=== PATIENT | male | born 1955 | race Caucasian/White ===

== ENCOUNTER 2019-01-07 06:15 | Day surgery (SDC) | payer OTHER ==
[~2019-01-07] VITALS: Ht 182.9 cm; Wt 67.1 kg
[~2019-01-07 06:15] MED LIST: FLOMAX0.4 MG PO; GLUCOPHAGE XR750 MG PO; PROSCAR5 MG PO
--- NOTE | 2019-01-07 08:05 | NUR ---
01/07/19 08 Erika Cintron 0759 PATIENT ARRIVES TO PACU SLEEPING. RESPONDS TO VERBAL STIMULI, THEN BACK TO SLEEP. RESP EVEN AND UNLABORED, NC AT 3 LITERS TURNED OFF ON ARRIVAL TO PACU, ROOM AIR SATS GREATER THAN 95%. 08 LAB CALLED FOR BLOOD DRAW PER DR KENDALL REQUEST.
--- NOTE | 2019-01-08 07:58 | OR ---
[facility] [address], [place] [address] Signed DATE OF OPERATION: 01/07/2019 SURGEON: Abel Kendall MD PREOPERATIVE DIAGNOSES: 1. Screening. 2. Internal hemorrhoids. POSTOPERATIVE DIAGNOSES: 1. Unspecified colonic mass at 20 cm (tattoo). 2. Moderate internal and external hemorrhoids. PROCEDURES: Colonoscopy with cold biopsies and injection of tattoo at 20 cm. ESTIMATED BLOOD LOSS: None. INDICATIONS: Karishma is a 63-year-old gentleman, who came in August 2008 for screening colonoscopy. He had internal hemorrhoids at that time. There is no family history of colon cancer or polyps. He has no lower GI complaints. He presents now for a followup screening colonoscopy. I gave Karishma a pamphlet in the office on colonoscopy and we looked at that together along with the risks including, but not limited to gas bloating, crampy abdominal pain, bleeding, perforation, requiring surgery, and missed diagnosis. He also understands the need for IV conscious sedation. He had expressed understanding and wished to proceed. PROCEDURE NOTE: Jonathan was taken into our endoscopy suite and placed in the left lateral decubitus position. He was given IV sedation with 7 mg of Versed and 100 mcg of fentanyl. A digital rectal exam was performed. He does have to moderate external hemorrhoids. He has good sphincter tone. Prostate glands moderately indurated, but not particularly enlarged. No dominant nodules. The adult colonoscope was introduced and advanced all around into the cecum under direct visualization of camera without difficulty. His prep was good. The scope was slowly withdrawn. He had no pathology until we reached 20 cm. In his distal sigmoid colon then he has a colonic mass occupying about 40% of the circumference of the lumen. It is not particularly long, maybe just 2 or 3 cm. It is obviously quite concerning. We went ahead and took several cold biopsies of this mass and then we placed a tattoo just opposite the mass to justin its location. The scope was Electronically Signed By: ABEL KENDALL MD 01/08/19 0758 PATIENT NAME: KARISHMA PARADA OPERATIVE REPORT DATE OF : 55 REPORT #: [id number] PHYSICIAN: ABEL KENDALL MD PCP: JANIYA SILVA REPORT IS CONFIDENTIAL AND NOT TO BE RELEASED WITHOUT AUTHORIZATION [facility] [address] [place] [id number] Signed withdrawn further and it looks like he has a fairly short rectum, maybe only 10 or 12 cm in length. We had just enough room then to retroflex the scope and he does have moderate internal hemorrhoids as well. After this, the gas was suctioned out. The colonoscope removed. Karishma tolerated the procedure quite well. RECOMMENDATIONS: We will draw a CEA level in our recovery room. I will have Karishma back in the office in a week or so for followup. Abel Kendall MD ALB/MODL /[id number] cc: RACHEL Desir MD Copies: JANIYA SILVA ANDREW L MD ~ Electronically Signed By: ABEL KENDALL MD 01/08/19 0758 PATIENT NAME: KARISHMA PARADA OPERATIVE REPORT DATE OF : 55 REPORT #: [id number] PHYSICIAN: ABEL KENDALL MD PCP: JANIYA SILVA REPORT IS CONFIDENTIAL AND NOT TO BE RELEASED WITHOUT AUTHORIZATION
== END 2019-01-07 09:10 | disposition home or self-care (01) ==
LOC: DS 06:15 → OPS 06:15 → DS 06:45 → OPS 06:45
PROVIDERS: Colon & Rectal Surgery
PROC: 0DBN8ZX Excision of Sigmoid Colon, Via Natural or Artificial Opening Endoscopic, Diagnostic (ICD-10-PCS; 2019-01-07)
PROC: 3E0H8GC Introduction of Other Therapeutic Substance into Lower GI, Via Natural or Artificial Opening Endoscopic (ICD-10-PCS; principal; 2019-01-07 06:45)
DX: Z12.11 Encounter for screening for malignant neoplasm of colon (principal); D12.5 Benign neoplasm of sigmoid colon; K64.8 Other hemorrhoids; K64.4 Residual hemorrhoidal skin tags; E11.9 Type 2 diabetes mellitus without complications; F41.9 Anxiety disorder, unspecified; Z79.899 Other long term (current) drug therapy; Z79.84 Long term (current) use of oral hypoglycemic drugs
CPT/HCPCS: 36415; 82378; 88305; 88342; 99153; G0500; J2250; J3010; J7120

== ENCOUNTER 2019-01-22 13:16 | Inpatient (IN) | payer OTHER ==
[~2019-01-22] VITALS: Ht 182.9 cm; Wt 58.1 kg
--- NOTE | 2019-01-29 10:09 | NUR ---
REPORTS DID BOWEL PREP.
--- NOTE | 2019-01-29 13:25 | NUR ---
01/29/19 1325 Elizabeth Castro 1251 PT ARRIVED IN PACU WITH ORAL AIRWAY IN PLACE ON A LIDOCAINE DRIP. VERBAL ORDERS FROM ANESTHESIA TO DC DRIP WHEN FINISHED. RN HOLDING AIRWAY OPEN WITH CHIN LIFT. 1305 LIDOCAINE DRIP FINSISHED AND REMOVED. [address] AWARE. 1310 PT RESPONSIVE. ORAL AIRWAY REMOVED. 1315 OXYGEN DECREASED TO 6L VIA MASK WITH SATS 100%. PT REPOSITIONED SELF TO RIGHT SIDE. 1325 PT RESTING. REU.
--- NOTE | 2019-01-29 14:27 | NUR ---
PT RECEIVED FROM PACU. PT RESTING WITH EYES CLOSED, AROUSABLE TO VOICE, ANSWERING QUESTIONS AND FOLLOWING COMMANDS. PT ON ROOM AIR, LUNG SOUNDS CLEAR, O2 SATS 96%. PT RATING PAIN 3-4/10 TO LOWER ABD, GIVEN 0.3 MG IV DILAUDID. PT DENIES NAUSEA, BOWEL TONES HYPOACTIVE. PT WITH MIDLINE INCISION, GAUZE AND TAPE, CDI, ICE PACK IN PLACE. PT WITH SCDS, CMS INTACT, WITHOUT EDEMA. PT PROVIDED WWATER, DISCUSSED FLUID RESTRICTION WIHT PT. PT DENIES OTHER NEEDS AT THIS TIME.
--- NOTE | 2019-01-29 15:03 | NUR ---
PT RESTING IN BED. PT RATING PAIN 2-3/10. PT ON ROOM AIR. PT DENIES NAUSEA, TOLERATING WATER WELL. MIDLINE INCISION, CDI. VSS. PT DENIES OTHER NEEDS AT THIS TIME.
--- NOTE | 2019-01-29 16:06 | NUR ---
PT RESTING IN BED. PT RATING PAIN 2/10. MIDLINE INCISION CDI. BOWEL TONES HYPOACTIVE. PT ON ROOM AIR, LUNG SOUNDS CLEAR. PT PROVIDED WITH JELLO, TOELRATED WATER WITHOUT NAUSEA. CMS INTACT, SCDS IN PLACE. PT DENIES OTHER NEEDS AT THIS TIME.
--- NOTE | 2019-01-29 18:33 | NUR ---
PT RECEIVED FROM PACU AT 1400. PT ON ROOM AIR, LUNG SOUNDS CLEAR. PT ALERT/ORIENTED, FLAT AFFECT. MIDLINE INCISION WITH GAUZE AND TAPE, CDI, ICE PACK IN PLACE. PT WITH GONZALEZ CATH, QS. D5LR AT 100 ML/HR. PT TOLERATING CLEAR LIQUID DIET WITH FLUID RESTRICTION. PT STOOD AT EDGE OF BED AND MARCHED IN PLACE, DID NOT FEEL READY TO WALK IN JOEL. SCDS IN PLACE.
--- NOTE | 2019-01-29 19:37 | NUR ---
cpp[ with assessment, midline dressing cdi. no c/o pain. f/c patent
--- NOTE | 2019-01-30 01:07 | NUR ---
RESTING, EYES CLOSED, AWAKES EASILY, NO FURTHER C/O PAIN. IVF INFUSING, F/C PATENT. SCDS ON.
--- NOTE | 2019-01-30 06:05 | NUR ---
CURRENTLY IN BED RESTING, ON ROOM AIR. MIDLINE ABD DRESSING CDI, [place], DENIES PASSING GAS AT THIS TIME. WAS MEDICATED X1 PER ABD PAIN WITH GOOD PAIN RELIEF PATENT DRAINING LIGHT JARED COLORED URINE. L ARM AND LE WEAKNESS [place], IVF INFUSING W/O PROBLEMS, TOLERATING SIPS OF FLUIDS PER 1000CC/24H FLUID RESTRICTIONS DIET. CALL LIGHT AT BEDSIDE
--- NOTE | 2019-01-30 07:10 | NUR ---
REPORT RECEIVED FROM MELANI MURO. PT RESTING IN BED AND REPORTS 2/10 PAIN THAT IS TOLERABLE. DRESSING C/D/I. PT REQUESTS JELLO FOR BREAKFAST, ORDER PLACED. PT DENIES ADDITIONAL REQUESTS OR COMPLAINTS AT THIS TIME. CALL LIGHT WITHIN REACH.
--- NOTE | 2019-01-30 07:13 | OR ---
[facility] [address] [place], [place] [address] Signed DATE OF OPERATION: 01/29/2019 SURGEON: Abel Kendall MD PREOPERATIVE DIAGNOSIS: Unspecified colonic mass at 20 cm (tattoo). POSTOPERATIVE DIAGNOSIS: Unspecified ulcerated colonic mass at 20 cm (tattoo). PROCEDURE: Low anterior resection with Mo side-to-end colorectal anastomosis, hand-sewn in 2 layers. INPUT AND OUTPUT: In was 1450 mL of crystalloid. Out was 20 mL of blood and 150 mL of urine over 2 hours. INDICATIONS: Karishma is a 63-year-old gentleman, who had presented for his initial screening colonoscopy in 2007. He had internal hemorrhoids at that time. No family history of colon cancer or polyps. No lower GI complaints. He would return for followup colonoscopy. Again, he has moderate internal and external hemorrhoids. We found a semilunar colonic mass at 20 cm. Visually occupied nearly one-half the circumference of the colon. It was very concerning from the visual standpoint. Five biopsies came back with adenomatous tissue. It was fairly firm. I have reviewed this with Karishma and his . I felt it was a little bit large to remove it safely with endoscope. The risk of perforation I felt was pretty high. We decided to go ahead and resect that area of colon for definitive treatment and diagnosis. We hope this is a large ulcerated adenomatous lesion rather than a cancer. We did draw a preoperative CEA level and it came back just normal at just over one. We withheld the CT scan of the chest, abdomen, and pelvis at this time. I had given Karishma a booklet in the office on colorectal polyps and cancer. We looked at the sigmoid colon along with the section on colon resections. I explained to Karishma, we would sew his colon back to the top of the rectum. We did review the expected intraop and postop course. He understands there is risk to surgery including, but not limited to bleeding, infection, scarring, change in contour of the skin as well as damage to bowel, damage to the ureters, anastomotic leak, incisional hernias, and other unforeseen comorbidities. He had expressed understanding and wished to proceed. PROCEDURE NOTE: Electronically Signed By: ABEL KENDALL MD 01/30/19 0713 PATIENT NAME: KARISHMA PARADA OPERATIVE REPORT DATE OF : 55 REPORT #: [id number] PHYSICIAN: ABEL KENDALL MD PCP: BARBARA SILVA REPORT IS CONFIDENTIAL AND NOT TO BE RELEASED WITHOUT AUTHORIZATION [facility] [address] [place] [id number] Signed I have met with Karishma and his in our preop area. After answering the questions, Karishma was taken in the operating room and placed in the supine position under general endotracheal tube anesthesia. He was given preoperative antibiotics along with subcutaneous heparin. SCDs were utilized. A Camacho catheter was inserted with return of clear yellow urine without difficulty. He was then prepped and draped in the usual sterile fashion. We utilized a standard periumbilical midline incision and carried that in the abdomen with the help of the cautery without difficulty. Karishma is quite thin and we could easily see the tattoo in the distal sigmoid colon and I could palpate the lesion inside the colon next to the tattoo. We could also see both ureters right through the peritoneum along with the iliac artery and veins. We went ahead and placed our Bookwalter retractor and packed the small bowel up and out of the way. The white line of Toldt was taken down with the cautery onto the top of the rectum. We divided the top of the rectum with the help of the TA 60 mm stapler. The mesocolon was taken down between Pean clamps and 0 Vicryl ties. The proximal portion of the specimen was divided with the help of a linear stapler. The colon came down quite easily to the top of the rectum without any tension whatsoever. We did not take down the splenic flexure. We went approximately one-half the way up the left abdominal gutter. We then proceeded and performed a standard Mo side-to-end colorectal anastomosis, hand-sewn in two layers using silk and 3-0 Vicryl sutures. It gave us a widely palpably patent anastomosis. The wound was then irrigated and suctioned out until clear. The small bowel and omentum were returned to positions. We closed the midline fascia and peritoneum with interrupted [id number] #1 PDS sutures. Local anesthetic was injected into the subcutaneous tissues. The dermis was reapproximated with interrupted 3-0 Monocryl sutures about every 2.5 cm. The skin was then reapproximated with jose. Dry gauze and tape were then applied. After this, Karishma was awakened from his anesthesia, extubated in the OR, and taken to recovery room in stable condition. His Camacho catheter was left in place. Abel Kendall MD ALB/MODL /[id number] cc: MD Barbara Simon FNP Electronically Signed By: ABEL KENDALL MD 01/30/19 0713 PATIENT NAME: KARISHMA PARADA OPERATIVE REPORT DATE OF : 55 REPORT #: [id number] PHYSICIAN: ABEL KENDALL MD PCP: BARBARA SILVA REPORT IS CONFIDENTIAL AND NOT TO BE RELEASED WITHOUT AUTHORIZATION [address] [address] Signed Copies: ABEL KENDALL MD, DANA FNP ~ Electronically Signed By: ABEL KENDALL MD 01/30/19 0713 PATIENT NAME: KARISHMA PARADA OPERATIVE REPORT DATE OF : 55 REPORT #: [id number] PHYSICIAN: ABEL KENDALL MD PCP: BARBARA SILVA REPORT IS CONFIDENTIAL AND NOT TO BE RELEASED WITHOUT AUTHORIZATION
--- NOTE | 2019-01-30 09:40 | NUR ---
MORNING ASSESSMENT AND MEDICATION DUE. PT RESTING IN BED. MEDICAITONS GIVEN PREVIOUSLY BY STUDENT RN. PT REPORTS 4/10 PAIN, SEE MAR FOR MEDICATION GIVEN. MD TO BEDSIDE FOR ROUNDS. GAUZE DRESSING REMOVED. WOUND ASSESSED, WNL. EDGES APROXIMATED, JOYA IN PLACE. NEW ORDERS PLACED BY . GONZALEZ DC'D ORDERED. PT CONTINUES TO REPORT WEAKNESS IN LEFT ARM AND BASELINE NEUROPATHY IN TOES. FLUID RESTRICTION DC'D AND PT NOW ON CLEAR LIQUID DIET TOELRATED. WATER REFILLED. PT ENCORAUGED TO DRINK TOLERATED. PT EDUCATION DONE REGARDING GONZALEZ CATHETER REMOVAL AND NEED TO VOID. PT REACHES 1000ML ON INCENTIVE SPIROEMTER. PT REPOSITIONED IN BED. PT ENCOURAGED TO GET UP TO CHAIR BUT REFUSES AT THIS TIME. PT STATES HE HAS NO ADDIITONAL REQUESTS OR COMPLAINTS AT THIS TIME. CALL LIGHT WITHIN REACH.
--- NOTE | 2019-01-30 10:09 | NUR ---
MED REC COMPLETE
--- NOTE | 2019-01-30 10:09 | NUR ---
MED REC COMPLETE
--- NOTE | 2019-01-30 11:04 | NUR ---
THIS RN TO ROOM TO CHECK ON PT. PT RESTING WITH EYES CLOSED, RESPIRATIONS REGULAR RATE AND RHYTHEM. BED RAILS UP. CALL LIGHT WITHIN REACH.
--- NOTE | 2019-01-30 12:05 | NUR ---
NOON ASSESSMENT DUE. PT RESTING IN BED. PT REFUSES TO GET UP TO CHAIR BUT AGREES TO SHOWER. PT REPORTS 2/10 PAIN AND DENIES NEED FOR ADDITIONAL PAIN MEDICATION. ASSESSMENT DONE. WOUND EDGES APROXIMATED. JOYA IN PLACE. PIV SALINE LOCKED FOR PT TO SHOWER. PT UP TO SHOWER. NO ADDITIONAL REQUESTS OR COMPLAINTS. SINTER PRESS OPERATOR AND STUDENT RN AT BEDSIDE FOR SHOWER AND LINEN CHANGE.
--- NOTE | 2019-01-30 13:45 | NUR ---
PATIENT UP TO VOID X1 TODAY, BLADDER SCANNED FOR 86ML AT 1340
--- NOTE | 2019-01-30 13:48 | NUR ---
THIS RN TO ROOM TO CHECK ON PT. PT UP TO CHAIR AND WORKING WITH STUDENT NURSE. PT REPORTS PAIN AT 2/10 AND DENIES NEED FOR ADDITIONAL PAIN MEDICAITON. PT STATES HE HAS NO ADDITIONAL REQUESTS OR COMPLAINTS AT THIS TIME. CALL LIGHT WITHIN REACH.
--- NOTE | 2019-01-30 14:46 | NUR ---
THIS NURSE CALLED TO ROOM FOR PT C/O CHEST PAIN 12/22 WITH RADIATING TO LEFT SHOULDER. PT ASSESSED, LUNGS CLEAR WITH SHALLOW BREATHING, VITAL SIGNS TAKEN AND WNL WITH HR AT 69 AND O2 SATURATION AT 98% ON RA. DR KENDALL CALLED AND UPDATED ON PT STATUS. ORDER FOR 325MG ASPRIN ADMINISTERED. ORDER TO CONSULT DR DUONG. DR DUONG NOTIFIED. ORDER FOR EKG. RT CALLED TO BEDSIDE. PT SAT UP IN BED, AFTER INTERVENTIONS REPORTS NO PAIN AND JUST FEELNG LIKE BREATHING IS DIFFICULT. REASSURED PT OXYGEN SATURATIONS AND VITLA SIGNS ARE WNL. DR DUONG TO BE AT BEDSIDE.
--- NOTE | 2019-01-30 14:56 | NUR ---
DR DUONG TO BEDSIDE. VERBAL ORDER FOR NITRO SUBLIGUAL ADMINISTERED.
--- NOTE | 2019-01-30 15:21 | NUR ---
1440 - PT REPORTING CHEST PAIN. JOSIAS, RN RESPONDS, 3/10 PAIN THAT RADITES THROUGH LEFT SHOULDER, PT ALSO SOB. VITAL SIGNS TAKEN. DR. KENDALL INFOMRED. CONSULTATION ORDERED WITH DR. DUONG. 1452 - DR. DUONG TO BEDSIDE. NEW ORDERS PLACED. 1445 - ASPIRN GIVEN (SEE DEC), EKG DONE 1455 - NITRO GIVEN (SEE DEC) 1501 - THIS RN TO BEDSIDE. 2ND DOSE NITRO GIVEN (SEE DEC). PT CONTINUES TO REPORTS 3/10 CHEST PAIN. VITALS TAKEN. 1512 - 1 MG MORPHINE GIVEN PER DR. DUONG VERBAL ORDER. PT CONTINUES TO REPORT 2/10 CHEST PAIN THAT RADIATES TO HIS SHOULDER 1515 - VITALS TAKEN, PT CONTINUES TO REPORT 2/10 CHEST PAIN, 3RD DOES OF NITRO GIVEN, X-RAY TECHNITIANS ARRIVED FOR CHEST X-RAY. 1525 - DR. DUONG TO BEDSIDE, STATES EKG WAS "NORMAL" PT NOW REPORTS 1/10 PAIN AND THAT THE MORPHINE MADE HIM FEEL BETTER. LABS AND X-RAY PENDING. 1530 - VITALS TAKEN. PT REPORTS 1/10 PAIN THAT IS "BETTER." NO ADDITONAL NEW ORDERS AT THIS TIME. BED RAILS UP. CALL LIGHT WITHIN REACH. PT RESTING WITH EYES CLOSED. PULSE OX IN PLACE. FAMILY AT BEDSIDE.
--- NOTE | 2019-01-30 15:54 | NUR ---
THIS RN TO ROOM TO CHECK ON PT. PT DENIES CHEST PAIN, SHOULDER PAIN, AND SOB. VITALS TAKEN. PT REPORTS FEELING "MUCH BETTER." PT DENIES ADDITIONAL REQUESTS OR COMPLAINTS. FAMILY AT BEDSIDE. CALL LIGHT WITHIN REACH.
--- NOTE | 2019-01-30 16:32 | NUR ---
THIS RN TO ROOM TO CHECK ON PT. PT RESTING WITH EYES CLOSED. RR = 18, REGULAR RATE AND RHYTHEM. BED RAILS UP. CALL LIGHT WITHIN REACH.
--- NOTE | 2019-01-30 16:34 | EKG ---
[facility] [address] [facility] [place], [place] [address] Signed Normal sinus rhythm Left posterior fascicular block Abnormal ECG When compared with ECG of 23-JAN-2019 08:25, No significant change was found Confirmed by SERGIO DUONG DO ([id number]) on 01/30/2019 4:34:09 PM Electronically Signed By: SERGIO DUONG DO 01/30/19 1634 PATIENT NAME: KARISHMA PARADA Electrocardiogram DATE OF : 55 PHYSICIAN: SERGIO DUONG DO REPORT #: [id number] REPORT IS CONFIDENTIAL AND NOT TO BE RELEASED WITHOUT AUTHORIZATION
--- NOTE | 2019-01-30 17:23 | NUR ---
AFTERNOON ASSESSMENT AND MEDICATIONS DUE. THIS RN TO BEDSIDE. PT DENIES CHEST PAIN AND REPORTS ABDOMINAL PAIN AT 10/24. PT DENIES NEED FOR PAIN MEDICAITON AT THIS TIME. ASSESSMETN DONE. PT DEMONSTRATES USE OF INCENTIVE SPIROMETER REACHES 1000 ML. MEDICATION GIVEN. PT REQUESTS BROTH AND JELLO FOR DINNER, PROVIDED REQUESTED. NO ADDITIONAL REQUESTS OR COMPLAINTS AT THIS TIME. CALL LIGHT WITH IN REACH. BED RAILS UP.
--- NOTE | 2019-01-30 17:26 | NUR ---
PT POST OP DAY 1 FOR LOWER ANTERIOR COLON RESECTION. SBA, WITH CLEAR LIQUID DIET, FLUID RESTRICITON DC'D THIS SHIFT. PT TOELRATING PO FLUIDS WELL, MINIMAL INTAKE THIS SHIFT. GONZALEZ CATHETER DC'D. PT VOIDING QUANTITY SUFFICIENT. HOME MEDICATIONS RESTARTED. PT HAD EPISODE OF CHEST PAIN AND SOB THIS SHIFT THAT TRAVELED DOWN HIS LEFT ARM/SHOULDER. SEE RN NOTED, EKG, CHEST X-RAY, AND MEDICAITONS DONE/GIVEN. PT CONTINUES TO DENIE CHEST PAIN FOR REMAINDER OF SHIFT. PT UP TO CHAIR THIS SHIFT. PT USES CALL LIGHT APPROPRIATLY.
--- NOTE | 2019-01-30 18:19 | NUR ---
MYKEL INFOMRED THIS RN THAT PT WAS GRIMICING AND HOLDING HIS STOMACH DURING VITALS AND TRANSFER BACK TO BED. THIS RN TO BEDSIDE. PT REPORTS 2/10 PAIN BUT IS NOTED TO BE RESTLESS AND GRIMICING AT TIMES. PT OFFERED PAIN MEDICATION. PT AGREES STATING "THAT SOUNDS GOOD." PAIN SCALE EDUCATION DONE. SEE MAR FOR MEDICATION GIVEN. PT DENIES NAUSEA, CHEST PAIN, AND SOB. PT RESTING IN BED. NO ADDITIONAL REQUESTS OR COMPLAINTS. WATER REFILLED. BED RAILS UP. CALL LIGHT WITHIN REACH.
--- NOTE | 2019-01-30 19:59 | NUR ---
no c/o pain, aabd ss intact, velma, denies passing gas, Coop with assessment. [place], call light at bedside
--- NOTE | 2019-01-30 22:40 | NUR ---
HELPED PT TO THE BATHROOM AND BACK TO BED. BEDSIDE TABLE AND CALL LIGHT IN REACH.
--- NOTE | 2019-01-30 23:04 | NUR ---
medicated with 2 [place] c/o 01/22 abd pain, denies passing rectal gas/ bed alarm on, call light and fluids at bedside
--- NOTE | 2019-01-31 05:48 | NUR ---
coop, in bed, using call light appropriately. Medicated with 2 [place] c/o 01/22 abd pain. continues to deny passing rectal gas. call light at bedside
--- NOTE | 2019-01-31 07:52 | NUR ---
0710: Pt resting in bed with no complaints at this time. Bedside report recieved from Gia POLO. Call light within reach.
--- NOTE | 2019-01-31 08:22 | NUR ---
PT SITTING UP IN RECLINER, C/O NAUSEA, ZOFRAN 8MG IV GIVEN, PILLOWS TO SUPPORT BACK IN CHAIR. DENIES FURTHER NEEDS, CALL LIGHT IN EASY REACH.
--- NOTE | 2019-01-31 09:48 | NUR ---
PT AMBULATED ONE COMPLETE LAP IN THE JOEL WITH A STANDBY ASSIST. PT TOLERATED THE WALK WELL WITH NO CP OR SOB. PT STATES HIS PAIN REMAINS AT A 2/10 AT THIS TIME. PT ENCOUARGED TO TRY AND STAY ON TOP OF HIS PAIN CONTROL DUE TO YESTERDAY WHEN HE WOULD NOT DEEP BREATH WITH PAIN RATED AT A 3/10. PT STATES UNDERSTANDING AND STATES HE WOULD LIKE A DOSE OF PAIN MEDIACTION AT THIS TIME. PT ENCOUARGED TO DEEP BREATH AND COUGH, PT USING HIS IS AT THIS TIME.
--- NOTE | 2019-01-31 11:06 | NUR ---
I WAS NOTIFIED BY THE STUDENT NURSE EL THAT THE PT HAD SOME EMESIS IN THE TOLIET WHICH WAS UNABLE TO BE MEASURED. THE PT STATES IT WAS A LARGE AMOUNT AND GREEN FROM HIS JELLO THAT HE ATE. THE PT WILL BE MEDICATED FOR THE NAUSEA, SEE EMAR. PT STATES HIS PAIN LEVEL IS BETWEEN 0-1/10 AT THIS TIME.
--- NOTE | 2019-01-31 11:43 | NUR ---
Visited pt 15 min after giving phenergan for nausea. Pt is asleep. No sign of extravasation of IV site from the medication.
--- NOTE | 2019-01-31 13:02 | NUR ---
PATIENT CALLS TO USE BATHROOM. PATIENT IN BED. PATIENT GOEST TO USE BATHROOM. ONE PERSON ASSISTING. NO OTHER NEEDS AT THIS TIME
--- NOTE | 2019-01-31 14:00 | NUR ---
PT STATES HE HAS SOME "GAS" BUT HAS NOT YET PASSED ANY. HE STATES HE HAS NO NAUSEA AND HIS PAIN IS WELL CONTROLLED AT THIS TIME.
--- NOTE | 2019-01-31 15:13 | NUR ---
PT STATES HIS PAIN AND NAUSEA ARE WELL CONTROLED AT THIS TIME.
--- NOTE | 2019-01-31 16:35 | NUR ---
WE WALKED 2 LAPS AROUND MED SURG.
--- NOTE | 2019-01-31 16:36 | NUR ---
PT WALKED SEVERAL TIMES IN THE HALLS TODAY AND APPEARS MORE COMFORTABLE THAN HE DID YESERDAY. PT DENIES ANY CP OR SOB THIS SHIFT. PT DID HAVE SOME NAUSEA AND VOMITING THIS AM WHICH WAS CONTROLED WITH MEDICATION AND HE HAS HAD NONE SINCE. VITAL SIGNS STABLE.
--- NOTE | 2019-01-31 17:01 | NUR ---
PT AMBULATED IN THE JOEL WITH A SBA AND HE DID WELL AND WAS STABLE ON HIS FEET. PT BACK TO HIS ROOM AT THIS TIME. THIS WAS THE PT'S 3RD WALK AND HE HAS DONE A TOTAL OF 4 COMPLETE LAPS.
--- NOTE | 2019-01-31 18:49 | NUR ---
Pt states he is doing well and denies any nausea and states his pain is acceptable at a 2. Scd's on and running.iv site intact.
--- NOTE | 2019-01-31 19:30 | NUR ---
REPORT RECEIVED, PT RESTING IN BED, DENIES ANY NEEDS AT THIS TIME, AOX4, IV FLUIDS INFUSING PER EMAR WNL, CALL LIGHT WITHIN REACH.
--- NOTE | 2019-01-31 21:15 | NUR ---
CALL LIGHT ANSWERED, PT C/O PAIN RELATED TO ABDOMEN, PT C/O 4/10 PAIN RELATED TO ABDOMEN, PT GIVEN PRN PO PAIN MEDICATION PER EMAR, PAIN MANAGEMENT EDUCATION PROVIDED TO PT, PT AGREEABLE, TOLERATED PO MEDICATIONS WELL, IV FLUIDS INFUSING PER EMAR WNL, ASSESSMENT COMPLETE, MIDLINE ABD INCISION C/D/I, NO DRAINAGE, BT ACTIVE, NO FLATUS NOTED FROM PT, NO BM NOTED, SCD'S ON, IS ENCOURAGED, CDB ENCOURAGED, NO REQUESTS AT THIS TIME, [place] LLIGHT WITHIN REACH.
--- NOTE | 2019-01-31 22:30 | NUR ---
PT RESTING IN BED, EYES CLOSED, BREATHS EVEN, UNLABORED, NO REQEUSTS AT THIS TIME, CALL LIGHT WITHIN REACH.
--- NOTE | 2019-02-01 00:50 | NUR ---
PT UP TO VOID IN BATHROOM WITH HELP OF MYKEL DURBIN, PT DENIES ANY PAIN OR NAUSEA AT THIS TIME, DENIES ANY NEEDS AT THIS TIME, CALL LIGHT WITHIN REACH. FALL PRECAUTIONS IN PLACE.
--- NOTE | 2019-02-01 02:43 | NUR ---
PT C/O 310 PAIN RELATED TO ABDOMEN, PT GIVEN PRN PAIN MEDICATION PER EMAR, PT UP TO VOID, TOLERATED AMBULATION, VOIDED 100 MLS OF CLEAR YELLOW URINE, PT STATES THAT HE ALSO WAS ABLE TO HAVE A SMALL AMOUNT OF FLATUS, BT REMAIN ACTIVE, INCISION C/D/I, NO FURTHER REQUESTS AT THIS TIME, IV FLUIDS INFUSING PER EMAR WNL, CALL LIGHT WITHIN REACH.
--- NOTE | 2019-02-01 05:08 | NUR ---
PT AOX4, APPROPRIATE THIS SHIFT, PT RECEIVED PRN PAIN MEDICATION X2 THIS SHIFT, NO C/O NAUSEA, PT STATES THAT HE DID HAVE FLATUS THIS SHIFT, HOWEVER NO BM, VSS, IV FLUIDS INFUSING PER EMAR WNL, USES CALL LIGHT APPROPRIATELY, MIDLINE INCISION C/D/I, BT ACTIVE, SCD'S ON.
--- NOTE | 2019-02-01 07:10 | NUR ---
REPORT RECEIVED FROM ADRIANE POLO. PT RESTING WITH EYES CLOSED ON RIGHT SIDE. RESPIRATIONS EVEN AND UNLABORED. BED RAILS UP. CALL LIGHT WITHIN REACH.
--- NOTE | 2019-02-01 08:00 | NUR ---
PT SALINE LOCKED FOR SHOWER. PT UP WITH OPERATIONS ACCOUNTANT TO SHOWER. NO REQUESTS OR COMPLAINTS.
--- NOTE | 2019-02-01 08:54 | NUR ---
PATIENT SITTING UP IN BED. SETS UP BATHROOM FOR SHOWER. PATIENT GOES TO BATHROOM TO TAKE A SHOWER BY HIMSELF. LINENS CHANGED. NO OTHER NEEDS AT THIS TIME
--- NOTE | 2019-02-01 09:00 | NUR ---
THIS RN TO ROOM WITH MD FOR ROUNDS. MORNING ASSESSMENT AND MEDICATION DUE. PT COMING OUT OF SHOWER. PT REPORSTS 2/ PAIN. SEE MAR FOR MEDICATION GIVEN. PT ADVANED TO SOFT DIET. NEW BREAKFAST ORDER PLACED. IV FLUIDS SLOWED TO 50ML/HR PER MD ORDER. ASSESSMENT DONE. WOUND C.D.I WITH EDGES WELL APROXIMATED. PT DEMONSTRATES USE OF I.S. REACHING 2500.PT UP TO AMBULATE IN JOEL. PT MAKES 1 LAP WITH NO SOB. PT DEMIES ADDITIONAL REQUESTS OR COMPLAINTS AT THIS TIME. PT UP TO CHAIR FOR BREAKFAST. CALL LIGHT WITHIN REACH.
--- NOTE | 2019-02-01 09:49 | NUR ---
PATIENT SITTING UP IN CHAIR. VITAL SIGNS AND I&O DONE. ICE WATER GIVEN. CALL LIGHT WITHIN REACH. NO OTHER NEEDS AT THIS TIME
--- NOTE | 2019-02-01 11:04 | NUR ---
THIS RN TO ROOM TO CHECK ON PT. PT RESTING IN CHAIR WITH EYES CLOSED, RESPIRATIONS EVEN AND UNLABORED. CALL LIGHT WITHIN REACH.
--- NOTE | 2019-02-01 12:15 | NUR ---
NOON ASSESSMENT DUE. THIS RN TO BEDSIDE. PT UP IN CHAIR PLAYING ON PHONE. PT REPORTS PAIN AT /10 AND DENIES NEED FOR PAIN MEDICATION AT THIS TIME. PT DENIES NAUSEA OR FEELINGS OF BLOATING BUT DECLINES LUNCH. ENSURE MILKSHAKE OFFERED AND ACCEPTED. ASSESSMENT DONE. INCISION C/D/I WITH EDGES APROXIMATED. PT DENIES ADDITIONAL REQUESTS OR COMPLAINTS AT THIS TIME. CALL LIGHT WITHIN REACH.
--- NOTE | 2019-02-01 13:26 | NUR ---
PATIENT SITTING UP IN CHAIR WATCHING TV. VITAL SIGNS AND I&O DONE. CALL LIGHT WITHIN REACH. NO OTHER NEEDS AT THIS TIME
--- NOTE | 2019-02-01 14:10 | NUR ---
PT AMBULATED INTO BATHROOM TO VOID. DOING WELL TODAY WITH AMBULATION, BACK TO RECLINER. DENIES FURTHER NEEDS. CALL LIGHT IN EASY REACH.
--- NOTE | 2019-02-01 15:21 | NUR ---
THIS RN TO ROOM TO CHECK ON PT. PT REPORTS "TROUBLE WITH GAS." MD CALLED. NO NEW ORDERS AT THIS TIME. PT UP TO AMBULATE AROUND JOEL WITH VICE PRESIDENT DIGITAL STRATEGIST. PT REPORTS 1/10 PAIN AND DENIES NEED FOR ADDITIONAL PAIN MEDICATION AT THIS TIME.
--- NOTE | 2019-02-01 15:22 | NUR ---
PATIENT DID 2 LAPS AROUND MED/SURG. WITH PAYROLL ADMINISTRATOR STANDING BY.
--- NOTE | 2019-02-01 15:45 | NUR ---
THIS RN TO ROOM TO CHECK ON PT. PT UP TO CHAIR EATING DINNER. PT REPORTS PAIN AT 1/10 AND DENIES NEED FOR ADDITIONAL PAIN MEDICATION. PT DENIES NAUSEA. NO ADDITIONAL REQUESTS OR COMPLAINTS. CALL LIGHT WITHIN REACH.
--- NOTE | 2019-02-01 16:30 | NUR ---
AFTERNOON ASSESSMENT AND MEDICATIONS DUE. PT UP TO CHAIR. PT REPORTS 2/10 PAIN, SEE MAR FOR MEDICATION GIVEN. PIV PER PROTOCOL. NEW PIV STARTED PER PROTOCOL, BLOOD RETURN NOTED. ASSESSMENT DONE. PT REACHES 2500 ON INCENTIVE SPIROMETER. PT DENIES NAUSEA BUT CONTINUES TO REPORT GAS PAIN, PT UP TO AMBULATE X2 LAPS IN JOEL. PT REPORTS "PASSING A LITTLE GAS." PT BACK TO CHAIR. ICE WATER REFILLED. NO ADDITIONAL REQUESTS OR COMPLAINTS. CALL LIGHT WITHIN REACH.
--- NOTE | 2019-02-01 17:35 | NUR ---
PATIENT SITTING UP IN CHAIR. VITAL SIGNS AND I&O DONE. CALL LIGHT WITHIN REACH. NO OTHER NEEDS AT THIS TIME
--- NOTE | 2019-02-01 17:50 | NUR ---
PT POST OP DAY 3 FOR COLON RESECTION. PT ADVANED TO SOFT DIET TODAY, TOELRATING WELL WITHOUT NAUSEA. PRN PAIN MEDICAITON GIVEN FOR 2/10 PAIN. BID BLOOD SURGAR CHECKS. AMBULATION ENCORUAGED, PT UP TO WALK IN JOEL X4 THIS SHIFT. WOUND C/D/I THIS SHIFT AND EDES APPROXIMATED. SHOWER THIS SHIFT. PT UP TO CHAIR FOR MOST OF SHIFT. VOIDING QUANTITY SUFFICIENT. PT USING CALL LIGHT APPROPRIATLY.
--- NOTE | 2019-02-01 19:00 | NUR ---
CHARGE ROUNDING DONE. PATIENT RESTING IN BED. PRIMARY RN IN ROOM FOR REPORT.
--- NOTE | 2019-02-01 19:11 | NUR ---
REPORT RECEIVED, PT RESTING IN BED, AOX4, VISITING WITH STAFF, PT DENIES ANY NEEDS AT THIS TIME, STATES THAT HE HAS BEEN PASSING GAS, DESCRIBES PAIN AT 1/10, DENIES NEED FOR PRN PAIN MEDICATION, IV FLUIDS INFUSING PER EMAR WNL, FALL PRECAUTIONS IN PLACE, CALL LIGHT WITHIN REACH.
--- NOTE | 2019-02-01 20:20 | NUR ---
VITALS DONE AND CHARTED. BEDSIDE TABLE AND CALL LIGHT IN REACH. PT NEEDS NOTHING MORE AT THIS TIME.
--- NOTE | 2019-02-01 20:39 | NUR ---
EVENING MEDS ADMINISTERED, PT CONTINUES TO DENY SIGNIFICANT PAIN RATING AT 1/10, DENYING NEED FOR PRN PAIN MEDICATION, PT'S MIDLINE ABDOMINAL INCISION REMAINS C/D/I, NO DRAINAGE, NO C/O N/V, PT TOLERATING DIET WELL. LS CLEAR, SCD'S ON, IV FLUIDS INFUSING PER EMAR WNL, PT DENIES ANY NEEDS AT THIS TIME, CALL LIGHT WITHIN REACH. FALL PRECAUTIONS IN PLACE.
--- NOTE | 2019-02-01 21:41 | NUR ---
INFORMED MELANI FORREST OF PT'S LOW OUTPUT.
--- NOTE | 2019-02-01 22:30 | NUR ---
PT AWAKE, UP TO BATHROOM, STATES THAT HE FEELS LIKE HE HAS TO PASS A BM BUT CAN'T SEEM TO YET, PT DENIES ABDOMINAL DISCOMFORT, STATES THAT HE HAS BEEN PASSING GAS, PT C/O 2/10 PAIN RELATED TO ABDOMINAL INCISION, PT GIVEN PRN PAIN MEDICATION PER EMAR, TOLERATED WELL, EDUCATION PROVIDED REGARDING PAIN MANAGEMENT. NO FURTHER NEEDS AT THIS TIME, CALL LIGHT WITHIN REACH.
--- NOTE | 2019-02-02 01:30 | NUR ---
PT UP TO BATHROOM, VOIDED CLEAR YELLOW URINE, NO BM, ASSESSMENT COMPLETE, INCISION C/D/I, BT ACTIVE, NO C/O PAIN AT THIS TIME, NO C/O NAUSEA, IV FLUIDS INFUSING PER EMAR WNL. CALL LIGHT WITHIN REACH. SCD'S ON.
--- NOTE | 2019-02-02 04:21 | NUR ---
PT RESTING IN BED, EYES CLOSED, BREATHS EVEN, UNLABORED, NO REQUESTS AT THIS TIME, CALL LIGHT WITHIN REACH, IV FLUIDS INFUSING PER EMAR WNL.
--- NOTE | 2019-02-02 04:41 | NUR ---
PT AOX4, APPROPRIATE, PT RECEIVED PRN PAIN MEDICATION X1 THIS SHIFT, PAIN HAS BEEN WELL CONTROLLED, PT HAS NOT HAD A BM BUT HAS BEEN PASSING GAS THIS SHIFT, URINE OUTPUT QS, IV FLUIDS INFUSING PER EMAR WNL, INDPENDENT IN ROOM, SCD'S ON, INCISION C/D/I, ENCOURAGE CDB/I.S. USES CALL LIGHT APPROPRIATELY, TOLERATING SOFT DIET, NO C/O NAUSEA. VSS.
--- NOTE | 2019-02-02 07:58 | NUR ---
Pt sleeping, respirations even and non labored. Pt has no distress noted, flacc scale 0/10 noted. Personal supplies and call light within reach. No needs at this time. Call light within reach.
--- NOTE | 2019-02-02 08:32 | NUR ---
PATIENT IS UP IN ROOM STRETCHING HIS LEGS, BREAKFAST WAS ORDERED, PATIENT WILL CALL WHEN HE NEEDS ASSISTANCE, BLOOD SUGAR DONE AND REPORTED TO NURSE
--- NOTE | 2019-02-02 10:32 | NUR ---
Pt sl per doc order. Pt up walking in hallway.
--- NOTE | 2019-02-02 15:55 | NUR ---
pt AMBULATING IN JOEL. DENIED PAIN, REPORTED A SMALL AMOUNT OF TENDERNESS. REFUSED PAIN MEDS AT THIS TIME.
--- NOTE | 2019-02-02 17:49 | NUR ---
ADMIN ONE TAB NORCO 5/325MG PO FOR REPORTS OF 2/10 ABD PAIN.
--- NOTE | 2019-02-02 20:07 | NUR ---
REPORT RECEIVED, PT RESTING IN BED, DENIES ANY NEEDS AT THIS TIME, DENIES PAIN, PT STATES THAT HE HAS CONTINUED TO HAVE SEVERAL SOFT/LOOSELY FORMED BM'S TODAY WELL PASSING GAS, IV SL, NO REQUESTS AT THIS TIME, CALL LIGHT WITHIN REACH. FALL PRECAUTIONS IN PLACE.
--- NOTE | 2019-02-02 21:00 | NUR ---
EVENING MEDS ADMINISTERED, PT DENIES ANY PAIN AT THIS TIME, DENIES ANY NAUSEA, IV SL, FLUSHES WELL, ASSESSMENT COMPLETE, PT'S INCISION C/D/I, ABD SOFT, LS CLEAR, PULSES STRONG, CALL LIGHT WITHIN REACH. FALL PRECAUTIONS IN PLACE.
--- NOTE | 2019-02-03 00:24 | NUR ---
PT RESTING IN BED, EYES CLOSED, BREATHS EVEN, UNLABORED, NO REQUESTS AT THIS TIME, CALL LIGHT WITHIN REACH. FALL PRECAUTIONS IN PLACE.
--- NOTE | 2019-02-03 02:56 | NUR ---
PT RESTING IN BED, DENIES NEEDS AT THIS TIME, NO C/O PAIN, NO C/O N/V, INCISION C/D/I, FALL PRECAUTIONS IN PLACE. CALL LIGHT WITHIN REACH.
--- NOTE | 2019-02-03 05:17 | NUR ---
VITALS AND I&OS DONE AND CHARTED. GARBAGES EMPTIED. FRESH ICE WATER GIVEN. BEDSIDE TABLE AND CALL LIGHT IN REACH.
--- NOTE | 2019-02-03 06:37 | NUR ---
PT AOX4 THIS SHIFT, APPROPRIATE, NO C/O PAIN, PT HAS BEEN MOSTLY INDEPENDENT IN ROOM, NO C/O NAUSEA, INCISION C/D/I, VOIDING IN URINAL. TOLERATING DIET WELL. VSS.
--- NOTE | 2019-02-03 08:50 | NUR ---
EVERY OTHER STAPLE REMOVED FROM MIDLINE INCISION PER DOC ORDER. INCSION CLOSED, BORDERS WELL APPROXIMATED.
[2019-02-03] MEDS ORDERED: NORCO 5-325 TA1 EACH PO (09:26)
[2019-02-03] MEDS ORDERED: PAIN RELIEF325 MG PO (09:31)
[2019-02-03] MEDS ORDERED: ADVIL200 MG PO (09:32)
--- NOTE | 2019-02-04 08:10 | DS ---
[facility] [address], [place] [address] Signed ADMISSION DATE: 01/29/2019 DISCHARGE DATE: 02/03/2019 FINAL DIAGNOSIS: Unspecified sigmoid colonic mass. PROCEDURE: Low anterior resection with colorectal Mo side-to-end colorectal anastomosis. HISTORY OF PRESENT ILLNESS: Karishma is a 63-year-old gentleman, who had come to us for routine followup colonoscopy. He had a circular ulcerated lesion in the sigmoid colon. It was too large to remove our colonoscope. The biopsies came back without cancer. His hemoglobin was borderline at 12.9, but his mean cell volume was normal at 84.9. CEA level was normal at just over 1. I had met with Karishma and his and explained to them the above findings. We decided to bring him in the hospital for his colectomy. HOSPITAL COURSE: Karishma was taken to the operating room on 01/29/2019 underwent a standard low anterior resection with a mo side-to-end colorectal anastomosis, hand-sewn in 2 layers. His intraoperative and postoperative course were quite uncomplicated. Karishma is at his ideal body weight, which helps significantly. He actually is ahead of schedule probably by one day. We were able to reduce his IV fluids and increase his diet each day. He did have a little left shoulder pain postoperatively, so we checked his EKG and his troponin levels and laboratory work and it all came back fine in consultation with our hospitalist. Our pathology is still pending. At this point, Karishma is doing really well. He is ambulating in the hallways, tolerating a regular diet. He passed multiple bowel movements and plenty of flatus. His abdominal exam is completely benign. He is flat, soft, and nontender. The incision is healing well without any local signs or symptoms of infection. DISCHARGE PLANS: Medications: Karishma is going to be discharged home with just a small prescription for [place] 05/325 one tablet p.o. q.6 hours p.r.n. pain. We will dispense 20 tablets with no refills. Otherwise, he can use Tylenol, ibuprofen or Naprosyn lkve-pzy-fihgwim for pain. He can resume all his chronic medications. He will continue his regular diet at home. We will remove half the jose prior to discharge. He can perform his activities of daily living including walking up and down stairs and showering and bathing as usual. He should not do any heavy pushing, pulling, or lifting over 20 pounds. I will have him back in the office in about 5-7 days for followup. He told me he is anxious to go back Electronically Signed By: ABEL KENDALL MD 02/04/19 0810 PATIENT NAME: KARISHMA PARADA DISCHARGE SUMMARY DATE OF : 55 REPORT #: [id number] PHYSICIAN: ABEL KENDALL MD PCP: BARBARA SILVA REPORT IS CONFIDENTIAL AND NOT TO BE RELEASED WITHOUT AUTHORIZATION [address] [address] Signed to work under light duty status. He has expressed understanding and would like to proceed as above. MD MOE Simon/JODEE Holland #: [id number] cc: MD Barbara Hinds FNP Copies: ABEL KENDALL MD, DANA FNP ~ Electronically Signed By: ABEL KENDALL MD 02/04/19 0810 PATIENT NAME: KARISHMA PARADA DISCHARGE SUMMARY DATE OF : 55 REPORT #: [id number] PHYSICIAN: ABEL KENDALL MD PCP: BARBARA SILVA REPORT IS CONFIDENTIAL AND NOT TO BE RELEASED WITHOUT AUTHORIZATION
== END 2019-02-03 09:50 | disposition home or self-care (01) | DRG 330 ==
LOC: DSVR 01-29 08:50 → MS 01-29 10:30
PROVIDERS: ADMIT Colon & Rectal Surgery
PROC: 0DBN0ZZ Excision of Sigmoid Colon, Open Approach (ICD-10-PCS; principal; 2019-01-29 10:30)
DX: C18.7 Malignant neoplasm of sigmoid colon (principal); C77.2 Secondary and unspecified malignant neoplasm of intra-abdominal lymph nodes; M25.512 Pain in left shoulder; R07.9 Chest pain, unspecified; E83.39 Other disorders of phosphorus metabolism; F41.9 Anxiety disorder, unspecified; M54.5 Low back pain; E11.9 Type 2 diabetes mellitus without complications; Z82.49 Family history of ischemic heart disease and other diseases of the circulatory system; Z79.84 Long term (current) use of oral hypoglycemic drugs; Z79.899 Other long term (current) drug therapy
CPT/HCPCS: 00790; 36415; 71045; 80048; 81210; 83735; 83880; 84100; 84484; 85025; 88309; 88341; 88342; 93005; 93010; C9113; J0131; J0330; J0696; J1100; J1170; J1644; J2250; J2270; J2405; J2550; J2704; J3010; J7040; J7120

== ENCOUNTER 2019-02-12 10:02 | Day surgery (SDC) | payer OTHER ==
[~2019-02-12] VITALS: Ht 182.9 cm; Wt 58.1 kg
[~2019-02-12 10:02] MED LIST changes: +ADVIL200 MG PO; +NORCO 5-325 TA1 EACH PO; +PAIN RELIEF325 MG PO
--- NOTE | 2019-02-12 12:51 | NUR ---
02/12/19 1251 Penelope Estrada 1235-PATIENT ARRIVED TO PACU ON 10L MASK NONAROUSABLE. ORAL AIRWAY IN PLACE. RR EVEN. DRESSING TO RIGHT IJ CDI WITH GAUZE AND TAPE 1246-PATIENT AROUSING ORAL AIRWAY REMOVED. EYES OPENING TALKING, 6L MASK. DROWSY. RR EVEN. SR. [id number]-XRAY AT BEDSIDE. DR. KENDALL AT BEDSIDE. PATIENT AROUSING TO VERBAL STIMULI DENIES PAIN OR NAUSEA. DOZES BACK TO SLEEP.
--- NOTE | 2019-02-13 08:24 | OR ---
[facility] [address], [place] [address] Signed DATE OF OPERATION: 02/12/2019 SURGEON: Abel Kendall MD PREOPERATIVE DIAGNOSIS: Stage III sigmoid colon cancer. POSTOPERATIVE DIAGNOSIS: Stage III sigmoid colon cancer. PROCEDURES PERFORMED: 1. Placement of right internal jugular [id number]-[id number]. 2. Physician-directed ultrasound. 3. Physician-directed fluoroscopy. ESTIMATED BLOOD LOSS: None. INDICATIONS: Karishma is a 63-year-old gentleman, who underwent his low anterior resection on January 29, 2019, for stage III colon cancer. He returns now to have placement of his Faln-O-Oiocrepq for his upcoming chemotherapy. I had met with Karishma in the office and I reviewed with him Hhef-I-Ghccjrzjk in detail. I wrote it down, so he can look it up on the Internet. We also reviewed the expected intraop and postop course. He understands there is risk to the surgery including, but not limited to bleeding, infection, scarring, change in contour of the skin, pneumothorax requiring chest tube placement, as well as catheter embolization requiring retrieval. He had expressed understanding and wished to proceed. PROCEDURE NOTE: I had met with Karishma and his in our preop area. After answering their questions, Karishma was taken back into the operating room and placed in supine position under general LMA anesthesia. He was given preoperative antibiotics along with subcutaneous heparin. SCDs were utilized. He was then prepped and draped in the usual sterile fashion. He was placed into the mild to Trendelenburg position. With ultrasound, then we were able to easily locate his internal jugular vein. We injected some local anesthetic over the area and we could easily see the needle tip travel right up next to the internal jugular vein. We then placed our needle into the internal jugular vein under direct visualization with the ultrasound. We were able to withdrawal blood quite readily. It was nonpulsatile dark blood. After this, our wire was able to be inserted Electronically Signed By: ABEL KENDALL MD 02/13/19 0824 PATIENT NAME: KARISHMA PARADA OPERATIVE REPORT DATE OF : 55 REPORT #: [id number] PHYSICIAN: ABEL KENDALL MD PCP: JANIYA SILVA REPORT IS CONFIDENTIAL AND NOT TO BE RELEASED WITHOUT AUTHORIZATION [facility] [address], [place] [address] Signed without any resistance whatsoever. We checked the position of the wire with our fluoroscopy unit. The track was then dilated and the position of the dilator was again checked with our fluoroscopy unit. After this, our catheter was inserted up to 15 cm without resistance and found to be in good position. We then injected local anesthetic along the right neck and onto the right chest wall. An oblique incision was made just below the clavicle and a pocket was made on the chest wall. Karishma is actually underweight and we had to go right down to the surface of the pectoralis major muscle. We then passed our dilator under in the subcutaneous space up to the small incision on the neck and brought our catheter down underneath the skin on the neck out to the pocket on the chest wall. We checked the full length of the catheter and found it to be in good position without any kinks or undue angulations. The collar was placed onto the catheter and the catheter was cut the length and the hub was placed onto the catheter without difficulty. The catheter is able to draw and flush very readily with our injectable saline. We rechecked the full length of the catheter from the hub. All the way around the neck and down to the tip and seemed to be in good position. We injected 2 mL of concentrated heparin into the catheter and again it was able to draw readily before we injected. The catheter pocket was copiously irrigated and suctioned out until clear. The skin, dermis, and subcutaneous tissues were brought together with help of 3-0 interrupted Monocryl sutures. The dermis of the incision on his neck was closed with 5-0 subcuticular Monocryl suture. The skin edges were reapproximated with running 6-0 fast absorbing plain gut suture. Dry gauze and tape were then applied. Karishma was then awakened from his anesthesia, extubated in the OR, and taken to recovery room in stable condition. Portable chest x-ray is currently pending. Abel Kendall MD ALB/MODL /[id number] cc: RACHEL Desir MD Copies: JANIYA SILVA Electronically Signed By: ABEL KENDALL MD 02/13/19 0824 PATIENT NAME: KARISHMA PARADA OPERATIVE REPORT DATE OF : 55 REPORT #: [id number] PHYSICIAN: ABEL KENDALL MD PCP: JANIYA SILVA REPORT IS CONFIDENTIAL AND NOT TO BE RELEASED WITHOUT AUTHORIZATION [address] [place], [place] [address] Signed NAMRATA OSORIO MD ~ Electronically Signed By: ABEL KENDALL MD 02/13/19 0824 PATIENT NAME: PARADAKARISHMA BRIAN OPERATIVE REPORT DATE OF : 55 REPORT #: [id number] PHYSICIAN: ABEL KENDALL MD PCP: JANIYA SILVA REPORT IS CONFIDENTIAL AND NOT TO BE RELEASED WITHOUT AUTHORIZATION
== END 2019-02-12 14:05 | disposition home or self-care (01) ==
LOC: DS 10:02
PROVIDERS: Colon & Rectal Surgery
PROC: 05HM33Z Insertion of Infusion Device into Right Internal Jugular Vein, Percutaneous Approach (ICD-10-PCS; 2019-02-12)
PROC: B543ZZA Ultrasonography of Right Jugular Veins, Guidance (ICD-10-PCS; 2019-02-12)
PROC: B513ZZA Fluoroscopy of Right Jugular Veins, Guidance (ICD-10-PCS; 2019-02-12)
PROC: 0JH60WZ Insertion of Totally Implantable Vascular Access Device into Chest Subcutaneous Tissue and Fascia, Open Approach (ICD-10-PCS; principal; 2019-02-12 11:00)
DX: C18.7 Malignant neoplasm of sigmoid colon (principal); E11.9 Type 2 diabetes mellitus without complications; K21.9 Gastro-esophageal reflux disease without esophagitis; M54.5 Low back pain; G89.29 Other chronic pain; M54.10 Radiculopathy, site unspecified; Z79.84 Long term (current) use of oral hypoglycemic drugs
CPT/HCPCS: 00532; 71045; 77001; C1788; J0690; J1100; J1644; J1885; J2250; J2405; J2704; J2765; J3010; J7120

== ENCOUNTER 2019-04-11 12:59 | Emergency (ER) | payer OTHER ==
[~2019-04-11] VITALS: Ht 182.9 cm; Wt 62.6 kg
[2019-04-11] MEDS ORDERED: NORCO 10-325 T1 EACH PO (16:19)
[2019-04-11] MEDS ORDERED: COLACE100 MG PO (16:19)
[2019-04-11] MEDS ORDERED: CIPRO500 MG PO (16:19)
[2019-04-11] MEDS ORDERED: FLAGYL500 MG PO (16:19)
== END 2019-04-11 16:32 | disposition home or self-care (01) ==
LOC: ED 12:59
DX: K62.89 Other specified diseases of anus and rectum (principal); E11.9 Type 2 diabetes mellitus without complications; Z85.038 Personal history of other malignant neoplasm of large intestine; Z90.49 Acquired absence of other specified parts of digestive tract
CPT/HCPCS: 74177; 80053; 81001; 85025; 99284-25; J2270; J2405; J7030; Q9967

== ENCOUNTER 2019-10-05 14:52 | Emergency (ER) | payer OTHER ==
[~2019-10-05] VITALS: Ht 182.9 cm; Wt 63.5 kg
[~2019-10-05 14:52] MED LIST changes: +ADRUCIL500 MG/10 IV; +CINVANTI130 MG/18 IV; +CIPRO500 MG PO; +COLACE100 MG PO; +DEXAMETHASO4 MG/1 ML IV; +DILTIAZEM ER60 MG PO; +FINASTERIDE5 MG PO; +FLAGYL500 MG PO; +LEUCOVORIN CAL350 MG INJ; +NORCO 10-325 T1 EACH PO; +ONDANSETRON4 MG/2 M1 IV; +OXALIPLATI100 MG/20 IV
== END 2019-10-05 18:14 | disposition home or self-care (01) ==
LOC: ED 14:52
DX: G89.18 Other acute postprocedural pain (principal); E11.9 Type 2 diabetes mellitus without complications; Z79.899 Other long term (current) drug therapy; Z79.84 Long term (current) use of oral hypoglycemic drugs
CPT/HCPCS: 70486; 99283-25

== ENCOUNTER 2020-02-24 07:20 | Day surgery (SDC) | payer OTHER ==
[~2020-02-24] VITALS: Ht 182.9 cm; Wt 66.2 kg
[~2020-02-24 07:20] MED LIST changes: +ASPIRIN EC81 MG PO; +METFORMIN HCL1000 MG PO
--- NOTE | 2020-02-24 09:49 | NUR ---
02/24/20 [facility]49 [facility] ARRIVED IN PACU SLEEPY WITH NO C/O'S. BLOOD SUGAR 117 ON ARRIVAL. 0945 REACTIVE TO VERBAL STIMULI. NO C/O'S.
--- NOTE | 2020-03-02 11:06 | OR ---
[facility] [address] [place], [place] [address] Signed DATE OF OPERATION: 02/24/2020 SURGEON: Abel Kendall MD PREOPERATIVE DIAGNOSES: 1. Gas bloating. 2. Gastroesophageal reflux disease. 3. Anemia. 4. History of colon cancer in December 2018 (stage 3). POSTOPERATIVE DIAGNOSES: 1. Mild punctate hemorrhagic gastritis. 2. Small hiatal hernia. 3. A 3 mm rectal polyp at 8 cm. 4. Mo side-to-end colorectal anastomosis at 18 cm. 5. Moderate internal external hemorrhoids. PROCEDURES: 1. EGD with CLOtest and biopsies of the duodenum, antrum and GE junction. 2. Colonoscopy with hot biopsy. ESTIMATED BLOOD LOSS: None. INDICATIONS: Karishma is a 64-year-old gentleman, who asked to see me for both upper and lower endoscopy. Before his colon cancer, he was having trouble gas, bloating and acid reflux. He has also been anemic with a hemoglobin of 11 and a mean cell volume of 74. He is also with some concern by the primary care provider about celiac sprue. They wanted biopsies from the duodenum for definitive diagnosis. In addition, he was diagnosed with colon cancer in December 1999 with stage 3 colon cancer in December 2018. He has completed his low anterior resection along with his chemotherapy. He is returning now for both the upper and lower endoscopy. His recent CEA level is 1.79. He said currently he seems to have no lower GI complaints. Karishma is very familiar with both upper and lower endoscopy. He understands there is risk including, but not limited to gas bloating, crampy abdominal pain, bleeding, perforation requiring surgery, and missed diagnosis. He also understands the need for IV conscious sedation. Specifically, he asked me not to call his with any results. They are going to call when they want the portacath removed. I will be seeing Karishma back in my office in a week or so for followup. He had expressed understanding and wished to proceed. Electronically Signed By: ABEL KENDALL MD 02/24/20 1323 PATIENT NAME: KARISHMA PARADA OPERATIVE REPORT DATE OF : 55 REPORT #: [id number] PHYSICIAN: ABEL KENDALL MD PCP: JANIYA SILVA REPORT IS CONFIDENTIAL AND NOT TO BE RELEASED WITHOUT AUTHORIZATION [facility] [address] [place], [place] [address] Signed DESCRIPTION OF PROCEDURE: Karishma was taken into our endoscopy suite and placed in the supine semi-recumbent position. He was given a total of 6 mg of Versed and 150 mcg of fentanyl to cover the case. The posterior oropharynx was anesthetized with Hurricaine spray. A bite block was utilized for the case. The adult gastroscope was introduced and advanced under direct visualization of camera into the third portion of the duodenum without difficulty. The duodenum and pyloric channel were unremarkable. We took a biopsy of the duodenum for pathologic review to rule out celiac sprue. In the stomach, he had very mild punctate hemorrhagic gastritis. We took a biopsy of the antrum for CLOtest as well as pathologic review. There were no ulcerations in the pyloric bulb nor the stomach. Upon retroflexion of scope, he does have just a small hiatal hernia. The scope was withdrawn up through the area of GE junction, which was compliant without stricture. There was no gastric or esophageal varices. There was just minimal disruption to the Z-line. There was no Nance's mucosa. No distal esophagitis. We went and took a biopsy along the GE junction for pathologic review. The middle and upper esophagus were unremarkable. After this, the gas had been suctioned out and the gastroscope removed. Karishma tolerated the upper endoscopy quite well. Karishma was then rotated into the left lateral decubitus position. He was maintained on IV sedation with Versed and fentanyl. A digital rectal exam was performed and he does have moderate circumferential external hemorrhoids. He has good sphincter tone. Prostate gland is not particularly enlarged, it is a little indurated. No dominant nodules. The adult colonoscope was then introduced and there was just a tiny 3 mm polyp up at 8 cm. It was easily removed with hot biopsy forceps. The scope was then advanced up through the colorectal anastomosis at 18 cm. We advanced it all the way around into the cecum without difficulty. His prep was quite good. We could easily see the appendiceal orifice and the ileocecal valve. The scope was slowly withdrawn. There was no pathology throughout the entire colon or rectum. No diverticulosis. No polyps in the colon. We examined the circumference of the anastomosis and it was quite healthy. Upon retroflexion of the scope, he does have moderate internal hemorrhoids. After this, the gas was suctioned out and the colonoscope removed. Karishma tolerated the procedure quite well. RECOMMENDATIONS: I will see Karishma back in my office in 7 to 14 days to review his results. Abel Kendall MD Electronically Signed By: ABEL KENDALL MD 02/24/20 1323 PATIENT NAME: KARISHMA PARADA OPERATIVE REPORT DATE OF : 55 REPORT #: [id number] PHYSICIAN: ABEL KENDALL MD PCP: JANIYA SILVA REPORT IS CONFIDENTIAL AND NOT TO BE RELEASED WITHOUT AUTHORIZATION [address] [place] [address] Signed ALB/MODL /[id number] cc: MD Mark Simon, RACHEL Coto MD Copies: ABEL KENDALL MD, ROBERT C MD BAILEY, DANA FNP LEHR, JEFFREY M MD ~ Electronically Signed By: ABEL KENDALL MD 02/24/20 1323 PATIENT NAME: KARISHMA PARADA OPERATIVE REPORT DATE OF : 55 REPORT #: [id number] PHYSICIAN: ABEL KENDALL MD PCP: JANIYA SILVA REPORT IS CONFIDENTIAL AND NOT TO BE RELEASED WITHOUT AUTHORIZATION
== END 2020-02-24 10:31 | disposition home or self-care (01) ==
LOC: OPS 07:20 → DS 07:20 → OPS 09:00 → DS 09:00 → OPS 10:31
PROVIDERS: Colon & Rectal Surgery
PROC: 0DB48ZX Excision of Esophagogastric Junction, Via Natural or Artificial Opening Endoscopic, Diagnostic (ICD-10-PCS; 2020-02-24)
PROC: 0DBP8ZZ Excision of Rectum, Via Natural or Artificial Opening Endoscopic (ICD-10-PCS; 2020-02-24)
PROC: 0DB98ZX Excision of Duodenum, Via Natural or Artificial Opening Endoscopic, Diagnostic (ICD-10-PCS; principal; 2020-02-24 09:00)
PROC: 0DB78ZX Excision of Stomach, Pylorus, Via Natural or Artificial Opening Endoscopic, Diagnostic (ICD-10-PCS; 2020-02-24 09:00)
DX: Z12.11 Encounter for screening for malignant neoplasm of colon (principal); K62.1 Rectal polyp; K64.8 Other hemorrhoids; K64.4 Residual hemorrhoidal skin tags; I51.89 Other ill-defined heart diseases; K44.9 Diaphragmatic hernia without obstruction or gangrene; K22.70 Barrett's esophagus without dysplasia; E11.9 Type 2 diabetes mellitus without complications; Z85.038 Personal history of other malignant neoplasm of large intestine; Z79.82 Long term (current) use of aspirin; Z79.84 Long term (current) use of oral hypoglycemic drugs
CPT/HCPCS: 86677; 99153; G0500; J2250; J3010; J7121

== ENCOUNTER 2023-03-06 06:37 | Day surgery (SDC) | payer OTHER ==
[~2023-03-06] VITALS: Ht 182.9 cm; Wt 62.6 kg
[2023-03-06 07:23] VITALS: BP 121/69
--- NOTE | 2023-03-06 09:20 | NUR ---
03/06/23 0920 Elizabeth Castro 0902 PT ARRIVED IN PACU SLEEPY. ABD SOFT. 0915 OXYGEN REMOVED. SATS 97% ON RA. NO C/O'S.
[2023-03-06 09:28] VITALS: BP 123/51
--- NOTE | 2023-03-06 10:11 | OR ---
[facility] [address], [place] [address] Signed DATE OF OPERATION: 03/06/2023 SURGEON: Abel Kendall MD PREOPERATIVE DIAGNOSES: 1. 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 2. Moderate internal and external hemorrhoids. 3. Stage III sigmoid colon cancer in 2019 at age 63 with 2/16 lymph nodes positive. 4. Mo colorectal anastomosis at 18 cm. 5. Hyperplastic rectal polyp in 2020 at age 64. POSTOPERATIVE DIAGNOSES: 1. Mild diffuse gastritis. 2. GE junction at 40 cm. 3. 4 mm polyp at 5 cm in rectum. 4. Mo side-to-end colorectal anastomosis at 18 cm. 5. Minimal left-sided diverticulosis. 6. Moderate internal and external hemorrhoids. PROCEDURES: 1. EGD with CLOtest and biopsies of the antrum and GE junction. 2. Colonoscopy with hot biopsy. ESTIMATED BLOOD LOSS: None. INDICATIONS: Karishma is a 67-year-old gentleman, who I helped with his initial colonoscopy in 2007 at the age of 52 for screening purposes. He was having hard stool and rectal bleeding at that time. He had some internal hemorrhoids and we asked him to follow up in 10 years. He always does well with the Versed and fentanyl. He returned in 2019 at the age of 63 for screening purposes. We found an adenocarcinoma at 20 cm in the sigmoid colon. He had internal and external hemorrhoids. I helped him with his low anterior resection that same year with a Mo side-to-end colorectal anastomosis at 18 cm. 2/16 lymph nodes were positive for stage III colon cancer. He has been through his chemotherapy and is doing well. He told me the blood work and x-rays have all been good. We since removed his patrick catheter. I helped him with upper endoscopy and lower endoscopy in 2019. He was having some acid reflux, bloating, and anemia. The CLOtest was negative, but the biopsies at the GE junction showed some metaplasia. Therefore, we asked him to follow up in three years to repeat both the upper and lower endoscopy. Again, he always Electronically Signed By: ABEL KENDALL MD 03/06/23 1011 PATIENT NAME: KARISHMA PARADA OPERATIVE REPORT DATE OF : 55 REPORT #: [id number] PHYSICIAN: ABEL KENDALL MD PCP: JANIYA SILVA REPORT IS CONFIDENTIAL AND NOT TO BE RELEASED WITHOUT AUTHORIZATION [facility] [address], [place] [address] Signed does well with Versed and fentanyl. On that occasion, he did have a small hyperplastic polyp in the rectum. He says he gets a little gassy pain in the left colon as it comes through the rectum. However, his bowel movements are good. He said he is still working at the local [employer] and remains quite healthy. He said he wants to retire at age 70. In the office, I gave him pamphlets on both upper and lower endoscopy. We reviewed the nature of the two tests. There is risk including, but not limited to gas bloating, crampy abdominal pain, bleeding, perforation requiring surgery, and missed diagnosis. We also reviewed the need for IV conscious sedation. He had expressed understanding and wished to proceed. PROCEDURE NOTE: Karishma was taken into our endoscopy suite and placed in the supine semi-recumbent position. The posterior oropharynx was anesthetized with Hurricaine spray. A bite block was utilized for the case. He was given a total of 5 mg of Versed and 100 mcg of fentanyl to cover both the upper and lower endoscopy. The adult gastroscope had been introduced and advanced out into the third portion of the duodenum without difficulty. The duodenum and pyloric channel were unremarkable. He had mild diffuse erythematous changes throughout the stomach with a few punctate areas in his antrum. We took a biopsy of the antrum for CLOtest as well as pathologic review. Upon retroflexion of the scope, we really cannot appreciate an obvious hiatal hernia. We withdrew the scope up through the area of the GE junction, which was compliant without stricture. There was no gastric or esophageal varices. He has very minimal disruption to the Z-line. There was no Nance's mucosa. We went ahead and took two biopsies along the edge of the Z-line for pathologic review due to his history of metaplasia. The middle and upper esophagus were unremarkable. After this, the gas was suctioned out and the gastroscope removed. Karishma tolerated the procedure quite well. Karishma was rotated into the left lateral decubitus position. He was maintained on IV sedation with the Versed and fentanyl. A digital rectal exam was performed. He does have moderate external circumferential hemorrhoids. He had good sphincter tone. I really could not appreciate his prostate gland. It may be that it has been removed and I do not see that in our records. The adult colonoscope was introduced and we found just a tiny 4 mm polyp at about 5 cm in the rectum. It was easily removed with the hot biopsy forceps. We passed the scope up through his colorectal anastomosis at [address] into the cecum. He needed just a little abdominal compression in order to get the scope over to the cecum. His prep was quite excellent as always. We could easily see the appendiceal orifice and the ileocecal valve. The scope was then slowly withdrawn. We had taken pictures throughout for photodocumentation. He does have a few diverticula in the left colon. They were small in size, few in number, and scattered about. His anastomosis at 18 cm is widely patent and quite healthy without any granulation tissue, ulceration or recurrent cancer. The rectum was unremarkable other than the small polyp. Upon retroflexion of the scope, he does have moderate internal Electronically Signed By: ABEL KENDALL MD 03/06/23 1011 PATIENT NAME: KARISHMA PARADA OPERATIVE REPORT DATE OF : 55 REPORT #: [id number] PHYSICIAN: ABEL KENDALL MD PCP: JANIYA SILVA REPORT IS CONFIDENTIAL AND NOT TO BE RELEASED WITHOUT AUTHORIZATION [facility] [address] [place] [id number] Signed hemorrhoids. After this, the gas was suctioned out and the colonoscope removed. Karishma tolerated the procedure quite well. RECOMMENDATIONS: I will see Karishma back in my office in 7 to 14 days to review his results. I will also ask him about his prostate gland. Abel Kendall MD ALB/ANUSHAL /[id number] cc: RACHEL Desir MD Andrew L Bower, MD Copies: JANIYA SILVA ROBERT C MD BOWER, ANDREW L MD ~ Electronically Signed By: ABEL KENDALL MD 03/06/23 1011 PATIENT NAME: PARADAKARISHMA BRIAN OPERATIVE REPORT DATE OF : 55 REPORT #: [id number] PHYSICIAN: ABEL KENDALL MD PCP: JANIYA SILVA REPORT IS CONFIDENTIAL AND NOT TO BE RELEASED WITHOUT AUTHORIZATION
--- NOTE | 2023-03-06 10:50 | NUR ---
PT SLEEPING, DID NOT DISTURB
--- NOTE | 2023-03-08 13:20 | PATH ---
[facility] [address] [facility] [place], [place] [address] Signed SPECIMEN(S): A ANTRUM BIOPSY SPECIMEN(S): B GE JUNCTION BIOPSIES SPECIMEN(S): C RECTAL POLYP AT 5 CM SPECIMEN SOURCE: A. ANTRUM BIOPSY B. GE JUNCTION BIOPSIES C. RECTAL POLYP AT 5 CM CLINICAL HISTORY: History of stage III colon cancer and low anterior resection. Gastritis. FINAL PATHOLOGIC DIAGNOSIS: A. Antrum of stomach, biopsy: - Suggestive of reactive gastropathy. - No Helicobacter organisms identified by routine stain. - No ulcer, dysplasia, or intestinal metaplasia identified. B. GE junction, biopsy: - Fragments of benign esophageal squamous mucosa with no intramucosal eosinophils. - Gastric cardia-type mucosa with focal intestinal metaplasia. - No ulcer or dysplasia identified. - See comment. C. Rectal polyp at 5 cm: - Sessile serrated adenoma. - Negative for dysplasia or malignancy. COMMENT: (Specimen B) The presence of intestinal metaplasia raises the possibility of Nance's esophagus in the correct clinical-endoscopic setting. Clinical correlation is required. JOOP:gamaliel:[id number] MICROSCOPIC EXAMINATION: Histologic sections of all submitted blocks are examined by light microscopy. These findings, together with the gross examination, support the pathologic diagnosis. GROSS DESCRIPTION: A. The specimen, labeled and designated "Ken, antrum biopsy," is received in formalin and consists of one chisholm soft tissue fragment, 0.2 cm. Entirely PATIENT NAME: KARISHMA PARADA PATHOLOGY DATE OF : 55 REPORT #: [id number] PHYSICIAN: KAYLIN CAUSEY PCP: JANIYA SILVA REPORT IS CONFIDENTIAL AND NOT TO BE RELEASED WITHOUT AUTHORIZATION [facility] [address] [place], [place] [address] Signed submitted in (A1). B. The specimen, labeled and designated "Parada, GE junction biopsies," is received in formalin and consists of two chisholm soft tissue fragments, ranging from 0.2 cm. Entirely submitted in (B1). C. The specimen, labeled and designated "Parada, rectal polyp at 5 cm," is received in formalin and consists of one chisholm soft tissue fragment, 0.1 cm. Entirely submitted in (C1). JS (under the direct supervision of a pathologist) The Gross Description was prepared using a voice recognition system. The report was reviewed for accuracy; however, sound-alike word errors, addition and/or deletions may occur. If there is any question about this report, please contact Client Services. PERFORMING LABORATORY: The technical component was performed by [facility], [address] [place] [address] (CLIA# [id number]). Professional interpretation was performed at [facility], [address] [place] [address]. Diagnostician: Jw Charles MD Pathologist Electronically Signed 03/08/2023 Copies: ~ PATIENT NAME: KENKARISHMA TORRES PATHOLOGY DATE OF : 55 REPORT #: [id number] PHYSICIAN: KAYLIN CAUSEY PCP: JANIYA SILVA REPORT IS CONFIDENTIAL AND NOT TO BE RELEASED WITHOUT AUTHORIZATION
== END 2023-03-06 09:40 | disposition home or self-care (01) ==
LOC: DS 06:37 → OPS 06:37 → DS 08:15 → OPS 08:15
PROVIDERS: ATTEND Colon & Rectal Surgery
PROC: 0DB68ZX Excision of Stomach, Via Natural or Artificial Opening Endoscopic, Diagnostic (ICD-10-PCS; principal; 2023-03-06 08:15)
PROC: 0DBP8ZX Excision of Rectum, Via Natural or Artificial Opening Endoscopic, Diagnostic (ICD-10-PCS; 2023-03-06 08:15)
DX: D12.8 Benign neoplasm of rectum (principal); R10.30 Lower abdominal pain, unspecified; K31.A0 Gastric intestinal metaplasia, unspecified; K29.70 Gastritis, unspecified, without bleeding; K57.30 Diverticulosis of large intestine without perforation or abscess without bleeding; K64.0 First degree hemorrhoids; K64.4 Residual hemorrhoidal skin tags; E11.9 Type 2 diabetes mellitus without complications; F41.9 Anxiety disorder, unspecified; H91.90 Unspecified hearing loss, unspecified ear; M54.9 Dorsalgia, unspecified; Z85.038 Personal history of other malignant neoplasm of large intestine; Z98.0 Intestinal bypass and anastomosis status
CPT/HCPCS: 36415; 87077; 99153; G0500; J2250; J3010; J7121